=== PATIENT | male | born 1985 | race Caucasian/White ===

== ENCOUNTER 2017-04-18 20:44 | Emergency (ER) | payer MEDICAID, OTHER ==
[~2017-04-18] VITALS: Ht 167.6 cm; Wt 80.0 kg
[2017-04-18 20:54] VITALS: Ht 167.6 cm; Wt 80.0 kg
[2017-04-18] MEDS ORDERED: IBUPROFEN 800 MG TAB PO ONE (23:30)
--- NOTE | 2017-04-18 23:59 | RADRPT ---
PROCEDURE: XR Chest. CLINICAL INDICATION: Chest pain. TECHNIQUE: Portable AP view of the chest was obtained. COMPARISON: None. FINDINGS: The cardiomediastinal silhouette is within normal limits. The lungs are clear. There is no evidenc e for pleural effusion, pneumothorax or pulmonary vascular congestion. The osseous structures are i ntact with no evidence for acute abnormality. RPTAT:HJJR IMPRESSION: No evidence for acute intrathoracic pathology. Physician Cary Date Time Electronically viewed and signed by Physician Cary on 04/18/2017 23:59 JR/
--- NOTE | 2017-04-19 00:01 | ERD ---
ER Documentation Chief Complaint Date/Time DATE: 04/18/17 TIME: 23:59 Chief Complaint CP [id number] NON RADIATING. DENIES MED HX. +SMOKER DENIES SOB HPI This is a 31-year-old male who presents to the emergency room for evaluation of chest pain. The patient states she has had chest pain for 24 hours and has been constant. He localizes to the left portion of the chest and describes it as an achy pain worse with deep inspiration. The patient denies any radiation, diaphoresis, nausea or vomiting associated with this chest pain. He denies any previous medical conditions at this time ROS All systems reviewed and are negative except as per history of present illness. Allergies Allergies: Coded Allergies: No Known Drug Allergy (Verified Allergy, Unknown, 04/18/17) PMhx/Soc Medical and Surgical Hx: pt denies Medical Hx, pt denies Surgical Hx Hx Alcohol Use: Yes Hx Substance Use: No Hx Tobacco Use: Yes Smoking Status: Current some day smoker Physical Exam Vitals Vital Signs Date Time Temp Pulse Resp B/P Pulse Ox O2 Delivery O2 Flow Rate FiO2 04/18/17 20:54 97.6 72 20 149/73 99 Physical Exam Const: No acute distress Head: Atraumatic Eyes: Normal Conjunctiva ENT: Normal External Ears, Nose and Mouth. Neck: Full range of motion..~ No meningismus. Resp: Clear to auscultation bilaterally Cardio: To palpation of the anterior chest wall, regular rate and rhythm, no murmurs Abd: Soft, non tender, non distended. Normal bowel sounds Skin: No petechiae or rashes Back: No midline or flank tenderness Ext: No cyanosis, or edema Neur: Awake and alert Psych: Normal Mood and Affect Results 24 hrs Current Medications Medications (Trade) Dose Ordered Sig/Monie Route PRN Reason Start Time Stop Time Status Last Admin Dose Admin Ibuprofen (Motrin) 800 mg ONCE ONCE PO 04/18/17 23:30 04/18/17 23:31 DC 04/18/17 23:24 Procedures/MDM EKG: #1 Rate/Rhythm: [Normal Sinus Rhythm] QRS, ST, T-waves: [No changes consistent w/ acute ischemia] Impression: [No evidence of ischemia or arrhythmia] EKG: #2 Rate/Rhythm: [Normal Sinus Rhythm] QRS, ST, T-waves: [No changes consistent w/ acute ischemia] Impression: [No evidence of ischemia or arrhythmia] Chest X-ray 1V Interpreted by me: Soft Tissue: No acute abnormalities Bones: No acute abnormalities Mediastinum/Cardiac Silhouette/Lungs: [No acute abnormalities] This is a 31-year-old male presents to the ER for evaluation of chest pain. The patient does have a heart score of 0. He has no medical problems. Vital signs were within normal limits. This patient did have tenderness to palpation of the anterior chest wall. Patient underwent 2 EKGs which did not show any acute ischemia or any evolution of EKG changes. Chest x-ray is clear. The patient is hemodynamically stable and nontoxic appearing. His oxygen level is 100% on room air. Patient was given Motrin and will be discharged home with prescription for Motrin for chest pain. Departure Diagnosis: Primary Impression: Chest pain Condition: Stable CATRACHITO AGARWAL DO Apr 19, 2017 00:01
[2017-04-19] MEDS ORDERED: IBUP800T25 PO (00:02)
== END 2017-04-19 12:47 | disposition home or self-care (01) ==
LOC: FTE 20:44
DX: R07.9 Chest pain, unspecified (principal); F17.210 Nicotine dependence, cigarettes, uncomplicated
CPT/HCPCS: 71010; 93005; Z7502; Z7610